=== PATIENT | female | born 1930 | race Caucasian/White ===

== ENCOUNTER 2020-10-04 04:27 | Emergency (ER) | payer MEDICARE, OTHER ==
[~2020-10-04 04:27] MED LIST: ASPI-1132 PO; BECL8.7A5 IH; BUMETANIDE PO; BUPR300T53 PO; DENO60DI SQ; ERGO500013 PO; HYDR25TA84 PO; SITA25 PO; SODI45SP10 NS; VERA180T12 PO; XALA2.5OS OD; [UNRECOGNIZED DRUG - OTHER]
[2020-10-04] MEDS ORDERED: ERGO500054 PO (05:12)
[2020-10-04] MEDS ORDERED: MEMA10TA11 PO (05:12)
[2020-10-04] MEDS ORDERED: ATOR20TA86 PO (05:12)
[2020-10-04] MEDS ORDERED: XALA2.5OS OU (05:12)
[2020-10-04] MEDS ORDERED: TRAM50TA4 PO (05:12)
[2020-10-04] MEDS ORDERED: FLUT44HFA IH (05:12)
[2020-10-04] MEDS ORDERED: METF-960 PO (05:12)
[2020-10-04] MEDS ORDERED: ASCO500 PO (05:12)
[2020-10-04 06:25] LABS: CALCIUM, TOTAL 10.1 mg/dL (8.8-10.5); CARBON DIOXIDE 32 mmol/L (22-29); CHLORIDE 100 mmol/L (98-107); CREATININE 0.79 mg/dL (0.60-1.30); GLUCOSE,RANDOM 218 mg/dL (70-110); POTASSIUM 4.2 mmol/L (3.5-5.1); UREA NITROGEN, BLOOD 25 mg/dL (7-18)
[2020-10-04 06:30] LABS: PROTHROMBIN TIME 10.9 SEC (9.4-11.6)
[2020-10-04 06:32] LABS: ALANINE AMINOTRANSFERASE 18 U/L (12-78); ALBUMIN 3.6 g/dL (3.4-5.0); ALKALINE PHOSPHATASE 72 U/L (46-116); ANION GAP 4 mmol/L (8-16); ASPARTATE AMINOTRANSFERASE 13 U/L (15-37); BILIRUBIN,TOTAL 0.4 mg/dL (0.1-1.0); CREATINE KINASE, TOTAL ONLY 35 U/L (26-192); SODIUM SERUM 136 mmol/L (136-145); TOTAL PROTEIN, SERUM 7.5 g/dL (6.4-8.2)
[2020-10-04 06:35] VITALS: BP 144/74
[2020-10-04 06:35] LABS: BASOPHILS % (AUTO) 0.4 % (0.0-2.0); EOSINOPHILS % (AUTO) 2.4 % (1.0-6.0); HEMATOCRIT 32.3 % (36-46); HEMOGLOBIN 10.5 g/dL (12.0-16.0); LYMPHOCYTES # (AUTO) 0.9 K/uL (1.0-4.8); LYMPHOCYTES % (AUTO) 8.5 % (22.0-44.0); MEAN CORPUSCULAR HEMOGLOBIN 29.1 pg (26.0-34.0); MEAN CORPUSCULAR HGB CONC 32.6 G/dL (31.0-37.0); MEAN CORPUSCULAR VOLUME 89 fL (80-100); MONOCYTES # (AUTO) 0.7 K/uL (0.1-1.0); MONOCYTES % (AUTO) 6.6 % (2.0-9.0); NEUTROPHILS # (AUTO) 8.8 K/uL (1.8-7.7); NEUTROPHILS % (AUTO) 82.1 % (40.0-70.0); PLATELET COUNT (AUTO) 275 K/uL (150-450); RED BLOOD CELL COUNT(AUTO) 3.62 MIL/uL (4.00-5.20); RED CELL DISTRIBUTION WIDTH 16.3 % (11.5-14.5)
[2020-10-04 06:37] LABS: GLOMERULAR FILTR. RATE CALC > 60 mL/min (>60)
[2020-10-04 07:02] LABS: B-TYPE NATRIURETIC PEPTIDE 419 pg/mL (0-100)
== END 2020-10-04 08:30 ==
LOC: EMS 04:27
DX: F03.90 Unspecified dementia, unspecified severity, without behavioral disturbance, psychotic disturbance, mood disturbance, and anxiety (principal); R79.1 Abnormal coagulation profile; W06.XXXA Fall from bed, initial encounter; Y93.89 Activity, other specified; Y92.89 Other specified places as the place of occurrence of the external cause; Y99.8 Other external cause status
CPT/HCPCS: 70450; 71045; 80053; 82550; 83880; 84484; 85025; 85610; 85730; 93005; 99285